=== PATIENT | male | born 1965 | race African-American/Black ===

== ENCOUNTER 2017-05-26 02:57 | Emergency (ER) | payer OTHER ==
[2017-05-26] MEDS: cloNIDine HCL 0.1 MG TABLET PO (03:44)
== END 2017-05-26 04:30 | disposition home or self-care (01) ==
LOC: ER 02:57
DX: M79.661 Pain in right lower leg (principal); M79.89 Other specified soft tissue disorders; W01.0XXA Fall on same level from slipping, tripping and stumbling without subsequent striking against object, initial encounter; Y93.01 Activity, walking, marching and hiking; Y99.8 Other external cause status; Y92.89 Other specified places as the place of occurrence of the external cause
CPT/HCPCS: 73590; 93971; 99284-25